=== PATIENT | male | born 1980 ===

== ENCOUNTER → 2020-04-19 11:14 | Outpatient (BNVA) | payer MEDICARE, MEDICAID, SELFPAY | PROVIDERS: Visit Provider Family Medicine | DX: M10.9 Gout, unspecified (principal) | CPT/HCPCS: 84550; 84560 ==

== ENCOUNTER → 2022-03-22 10:00 | Outpatient (BNVA) | payer MEDICARE, MEDICAID, SELFPAY | PROVIDERS: Visit Provider Nurse Practitioner Family | DX: I10 Essential (primary) hypertension (principal); M10.9 Gout, unspecified; R00.2 Palpitations; F41.9 Anxiety disorder, unspecified; Z94.0 Kidney transplant status | CPT/HCPCS: 80053; 80061; 85007; 85027 ==

== ENCOUNTER → 2022-04-22 12:54 | Outpatient (BNVA) | payer MEDICARE, MEDICAID, SELFPAY | PROVIDERS: Visit Provider Nurse Practitioner Family | DX: I10 Essential (primary) hypertension (principal); R00.2 Palpitations; Z11.52 Encounter for screening for COVID-19; J20.9 Acute bronchitis, unspecified; J32.0 Chronic maxillary sinusitis; Z20.822 Contact with and (suspected) exposure to COVID-19; N18.5 Chronic kidney disease, stage 5 | CPT/HCPCS: 87635 ==

== ENCOUNTER → 2022-06-06 10:41 | Outpatient (BNVA) | payer MEDICARE, MEDICAID, SELFPAY | PROVIDERS: Visit Provider Internal Medicine | DX: N18.5 Chronic kidney disease, stage 5 (principal); R31.29 Other microscopic hematuria | CPT/HCPCS: 80048; 81003; 82040; 82310; 82570; 83036; 83735; 83970; 84100; 84156; 84550; 85018 ==

== ENCOUNTER → 2023-04-30 09:45 | Outpatient (BNVA) | payer MEDICARE, MEDICAID, SELFPAY | PROVIDERS: PCP Nurse Practitioner Family; Visit Provider Nurse Practitioner Family | DX: N18.5 Chronic kidney disease, stage 5 (principal); I12.9 Hypertensive chronic kidney disease with stage 1 through stage 4 chronic kidney disease, or unspecified chronic kidney disease | CPT/HCPCS: 80053; 80061 ==